=== PATIENT | male | born 1965 | race Caucasian/White ===

== ENCOUNTER 2016-10-13 10:40 | Day surgery (SDC) | payer BC ==
[~2016-10-13] VITALS: Ht 177.8 cm; Wt 155.5 kg
[2016-10-13 11:31] LABS: BASOPHILS 0.1 % (0.0-2.0); EOSINOPHILS 7.6 % (0-7); HEMATOCRIT 40.8 % (42.0-54.0); HEMOGLOBIN 13.7 g/dL (13.5-17.5); IMMATURE GRANULOCYTES 0.1 % (0-5); LYMPHOCYTES 25.8 % (15-50); MCH 31.2 pg (26.0-34.0); MCHC 33.6 g/dL (31.0-37.0); MCV 92.9 fL (80.0-100.0); MEAN PLATELET VOLUME 10.1 fL (7.4-10.4); MONOCYTES 10.2 % (2-11); NEUTROPHILS 56.2 % (40-80); PLATELET COUNT 212 10x3/uL (130-400); RBC 4.39 10x6/uL (4.20-6.10); RDW 13.4 % (11.5-14.5); WBC 6.7 10x3/uL (4.8-10.8)
[2016-10-13 11:39] LABS: ANION GAP 10.6 mmol/L (8-16); CALCIUM 8.5 mg/dL (8.5-10.1); CARBON DIOXIDE 28.5 mmol/L (21.0-32.0); CREATININE - SERUM 1.2 mg/dL (0.6-1.3); POTASSIUM - SERUM 4.1 mmol/L (3.5-5.1)
[2016-10-13] MEDS ORDERED: ZYLOPRIM300 MG PO (12:40)
[2016-10-13] MEDS ORDERED: KLONOPIN0.5 MG PO (12:41)
[2016-10-13] MEDS ORDERED: TOPROL XL50 MG PO (12:42)
[2016-10-13] MEDS ORDERED: GLUCOPHAGE500 MG PO (12:42)
[2016-10-13] MEDS ORDERED: ZANTAC150 MG PO (12:42)
[2016-10-13] MEDS ORDERED: PROZAC10 MG PO (12:43)
[2016-10-13 12:49] VITALS: BP 165/86; Ht 177.8 cm; Wt 155.5 kg
--- NOTE | 2016-10-13 13:57 | NUR ---
1357-INFLATE 60FR TIME ONE MINUTE.
[2016-10-13] MEDS ORDERED: DEXILANT60 MG PO (14:16)
--- NOTE | 2016-10-13 16:09 | NUR ---
1515 IV DC WITH CaTHER TIP INTACT
--- NOTE | 2016-10-19 13:54 | OP ---
PATIENT NAME: EDUARDO SCHWARTZ MEDICAL RECORD: [id number] :63 LOCATION:[facility] ADMISSION DATE: SURGEON: CAROLINE CORTES MD DATE OF OPERATION: 10/13/2016 REFERRING PHYSICIAN: Dr. Elise Perera. PROCEDURE: EGD with biopsy and esophageal balloon dilatation. INDICATIONS: Mr. Schwartz is a very pleasant 51-year-old gentleman with a history of dysphagia, with a history of esophageal stricture. He has been followed by Dr. Cleveland in [place] in the past and he typically has an esophageal dilatation every 2-5 years. He presents for outpatient EGD. PREMEDICATIONS: Total IV anesthesia (BMI is 49 and obstructive sleep apnea) propofol 400 mg. INSTRUMENT: Olympus video gastroscope and esophageal balloon dilator 60-Djiboutian. PROCEDURE AND FINDINGS: After receiving informed consent, Mr. Schwartz's posterior pharynx was anesthetized with Cetacaine spray, placed in left lateral decubitus position, sedated as per anesthesia. After achieving an adequate level of sedation, gastroscope was introduced per orally and advanced to the duodenum without difficulty. The proximal esophageal mucosa was notable for diffuse erythema and biopsies were obtained. In the distal esophagus at the GE junction was a short nonobstructive mild stricture and small sliding type hiatal hernia was noted. Gastric mucosa was notable for mild prepyloric and antral erythema and antral biopsies were obtained to rule out Helicobacter pylori. There were multiple polyps scattered throughout the body and fundus of the stomach and multiple polyps were biopsied for histopathology. Pylorus was patent and competent. Duodenal mucosa was without erythema or ulcers, appeared normal through the second portion. Gastroscope was then withdrawn to the stomach. Esophageal balloon dilator was passed through the gastroscope, the balloon was positioned midway across the distal esophagus insulated to a 60-Djiboutian size, held in place on the appropriate PSI for 60 seconds, then deflated with good results. Balloon was withdrawn and then biopsies were taken from the distal and proximal esophagus. Mr. Schwartz tolerated the procedure well and no immediate complications. ASSESSMENT: 1. Proximal esophagitis, likely secondary to gastroesophageal reflux disease, status post biopsy. 2. Short esophageal stricture, nonobstructive, status post esophageal balloon dilatation. 3. Small sliding type hiatal hernia. 4. Mild gastritis. 5. Gastric polyps. RECOMMENDATIONS: 1. Recommend proton pump inhibitor in addition to or in lieu of ranitidine at least to take daily. 2. Follow up histopathology. 3. Esophageal balloon dilatation as needed. TRANSINT:[id number] Voice Confirmation ID: [id number] DOCUMENT ID: [id number] OPERATIVE REPORT [id number] EDUARDO SCHWATRZ TERRI MD at 1354 CC: ELISE PERERA [id number] DICTATION DATE: 10/13/16 141 INTERACTIVE DEVELOPER: 10/13/161933 [facility] 10/13/16 [id number] [place] [address]
== END 2016-10-13 15:30 | disposition home or self-care (01) ==
LOC: D.OPS 10:40
PROVIDERS: Anesthesiology
DX: K20.9 Esophagitis, unspecified (principal); K21.9 Gastro-esophageal reflux disease without esophagitis; K22.2 Esophageal obstruction; K44.9 Diaphragmatic hernia without obstruction or gangrene; K29.70 Gastritis, unspecified, without bleeding; K31.7 Polyp of stomach and duodenum; G47.33 Obstructive sleep apnea (adult) (pediatric)

== ENCOUNTER 2017-03-23 11:11 | Day surgery (SDC) | payer BC ==
[~2017-03-23] VITALS: Ht 177.8 cm; Wt 143.2 kg
--- NOTE | ~2017-03-23 | OP ---
PATIENT NAME: EDUARDO SMITH MEDICAL RECORD: [id number] :61 [facility]ATION:[facility] ADMISSION DATE: SURGEON: ALBERT VALDIVIA DO DATE OF OPERATION: 03/23/2017 PROCEDURE: Colonoscopy with polypectomy. INDICATIONS FOR PROCEDURE: Screening for colorectal cancer. SCOPE: Olympus video pediatric colonoscope. MEDICATIONS: Propofol 780 mg IV per anesthesia. WITHDRAWAL TIME: 28 minutes. ESTIMATED BLOOD LOSS: Minimal. COMPLICATIONS: None. FINDINGS: Informed consent was given. The patient was made comfortable with the above medication. After reaching an adequate level of sedation by slow IV push, the patient was placed on his left side. A digital rectal examination was performed and it was normal. The endoscope was then advanced under direct visualization through the rectum to the cecum with visualization of the appendiceal orifice and ileocecal valve. The scope was slowly withdrawn and the mucosa was carefully examined. The prep was good. In the ascending colon, there were 2 polyps. They were both benign-appearing and sessile and measured approximately 6-8 mm in diameter. They were both removed using a hot snare in 1 piece and completely retrieved. In the descending colon, there was 1 polyp which was benign appearing and sessile, measuring approximately 7 mm in diameter. It was removed in 1 piece using hot snare and completely retrieved. In the sigmoid colon, there were 5 separate polyps which were benign-appearing and sessile and flat. They ranged in size from 2 mm-5 mm in size. They were all removed using hot forceps in 1 piece and completely retrieved. There was evidence of mild diverticulosis involving the sigmoid colon without evidence of diverticulitis. In the rectum, retroflexion was performed with visualization of small nonbleeding internal hemorrhoids. The scope was completely withdrawn from the patient. The patient tolerated the procedure well and there were no complications. IMPRESSION: 1. Multiple polyps as described above removed using hot snare and hot forceps. 2. Mild diverticulosis of the sigmoid colon. 3. Small nonbleeding internal hemorrhoids. PLAN AND RECOMMENDATIONS: 1. Discharge home when recovery parameters are met. 2. Follow up biopsy specimen results. 3. High fiber diet. 4. Continue current medications. 5. Recall colonoscopy in 3 years, pending results of pathology from polyps removed. TRANSINT:[id number] Voice Confirmation ID: [id number] DOCUMENT ID: [id number] OPERATIVE REPORT [id number] LUIS,ALBERT NEGRON DO CC: [id number] DICTATION DATE: 03/23/17 1619 BALLER TENDER: 03/23/17 2348 [facility] 03/23/17 [id number] [place] [address]
[~2017-03-23 11:11] MED LIST: DEXILANT60 MG PO; GLUCOPHAGE500 MG PO; KLONOPIN0.5 MG PO; PROZAC10 MG PO; TOPROL XL50 MG PO; ZANTAC150 MG PO; ZYLOPRIM300 MG PO
[2017-03-23 12:42] LABS: HEMATOCRIT 41.8 % (42.0-54.0); HEMOGLOBIN 13.9 g/dL (13.5-17.5); MCH 30.2 pg (26.0-34.0); MCHC 33.3 g/dL (31.0-37.0); MCV 90.7 fL (80.0-100.0); MEAN PLATELET VOLUME 10.5 fL (7.4-10.4); RBC 4.61 10x6/uL (4.20-6.10); RDW 13.9 % (11.5-14.5); WBC 7.4 10x3/uL (4.8-10.8)
[2017-03-23 12:47] LABS: ANION GAP 13.2 mmol/L (8-16); CALCIUM 8.6 mg/dL (8.5-10.1); CREATININE - SERUM 1.2 mg/dL (0.6-1.3); POTASSIUM - SERUM 4.2 mmol/L (3.5-5.1)
[2017-03-23] MEDS ORDERED: PRINIVIL20 MG PO (13:29)
[2017-03-23] MEDS ORDERED: FLOMAX0.4 MG PO (13:30)
[2017-03-23] MEDS ORDERED: PROTONIX40 MG PO (13:30)
[2017-03-23 13:34] VITALS: Ht 177.8 cm; Wt 143.2 kg
--- NOTE | 2017-03-23 16:51 | NUR ---
1630 ABDOMEN DISTENDED AND IS PASSING SOME FLATUS PAIN LEVEL IS A 3. RESP EVEN AND NONLABORED. POST COLONOSCOPY. DR. VALDIVIA IS AWARE OF HIS ABDOMEN ROUND AND DISTENDED. ENCOURAGED TO STAY ON HIS SIDE LEFT AND PASS AIR.
--- NOTE | 2017-03-23 17:06 | NUR ---
1700 PASSED A LOT OF FLATULENCE BELLY MUCH SOFTER AND NO PAIN.
--- NOTE | 2017-03-23 17:53 | NUR ---
1715 DR. VALDIVIA CHECKED ON PATIENT STATED TO JUST MONITOR PATIENT. BELLY MUCH SOFTER AND PASSING FLATUS BOWEL SOUNDS PRESENT ABDOMEN DISTENDED BUT MUCH SOFTER WILL MONITOR.
--- NOTE | 2017-03-23 17:56 | NUR ---
1745 UP AND VOIDED WITH ASSISTANCE.
--- NOTE | 2017-03-23 17:57 | NUR ---
Madonna REPORTED TO DR. VALDIVIA ABDOMEN SOFTER PASSED AIR AND TOLERATED LIQUIDS OKAY FOR DISCHARGE.
--- NOTE | 2017-03-23 17:58 | NUR ---
1758 IV DCD CATHETER INTACT. DISCHARGE INSTRUCTIONS GIVEN AND VERBALLY UNDERSTANDS.
--- NOTE | 2017-03-23 18:12 | NUR ---
1810 NO ABDOMEN PAIN TOLERATED FULL LIQUIDS UP AND VOIDED CRITERIA MET AND HOME VIA W/C.
== END 2017-03-23 18:11 | disposition home or self-care (01) ==
LOC: D.OPS 11:11
PROVIDERS: Anesthesiology
DX: Z12.11 Encounter for screening for malignant neoplasm of colon (principal); D12.2 Benign neoplasm of ascending colon; K63.5 Polyp of colon; D12.4 Benign neoplasm of descending colon; K57.30 Diverticulosis of large intestine without perforation or abscess without bleeding; K64.8 Other hemorrhoids; Z01.812 Encounter for preprocedural laboratory examination

== ENCOUNTER 2018-05-24 12:35 | Day surgery (SDC) | payer BC ==
[~2018-05-24] VITALS: Ht 177.8 cm; Wt 150.0 kg
--- NOTE | ~2018-05-24 | OP ---
PATIENT NAME: EDUARDO SCHWARTZ MEDICAL RECORD: [id number] :61 LOCATION:[facility] ADMISSION DATE: SURGEON: CAROLINE CORTES MD DATE OF OPERATION: 05/24/2018 PROCEDURE: Colonoscopy with polypectomy. REFERRING PHYSICIAN: Dr. Elise Perera. INDICATIONS: Mr. Schwartz is a very pleasant 53-year-old gentleman with a history of colon polyps. His last colonoscopy (with Dr. Jung) on 03/23/2017 showed 9 polyps and mild sigmoid diverticulosis coli. 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 He presents for outpatient surveillance colonoscopy. PREMEDICATIONS: Total IV anesthesia (BMI approximately 47) propofol 480 mg. INSTRUMENT: [employer] video colonoscope pediatric. PROCEDURE AND FINDINGS: After receiving informed consent, Mr. Schwartz was placed in left lateral decubitus position, sedated as per anesthesia. After achieving adequate level of sedation, digital rectal exam was performed that showed no external hemorrhoidal tags, fissures or fistulas, normal sphincter tone, no palpable rectal masses. Colonoscope was introduced per rectally and advanced to the cecum with some difficulty. He had a long and redundant colon. The cecum, IC valve, and appendiceal orifice were identified and appeared normal. As the colonoscope was withdrawn, careful inspection was made of the guzman of the colon. Overall mucosa had normal vascular and fold pattern. In the transverse colon was a 0.5 cm sessile polyp removed with hot biopsy forcep technique. In the descending colon was a 0.5 cm sessile polyp removed with hot biopsy forcep technique and in the sigmoid colon was a 0.5 cm sessile polyp removed with biopsy forcep technique. Within the rectum were 2 polyps measuring 0.3 to 0.5 cm in size, sessile, removed with biopsy forceps technique. A mild number of diverticula were seen scattered in the sigmoid colon. Retroflexion in the rectum showed trace internal hemorrhoids. A fair to good prep was present. Withdrawal time was 6 minutes. Mr. Schwartz tolerated the procedure well, no immediate complications. ASSESSMENT: 1. Sigmoid polyp status post polypectomy. 2. Descending polyp status post polypectomy. 3. Transverse polyp status post polypectomy. 4. Two rectal polyps status post polypectomy. 5. Mild sigmoid diverticulosis coli. 6. Trace internal hemorrhoids. RECOMMENDATIONS: 1. Follow up histopathology. 2. Avoid aspirin, nonsteroidal anti-inflammatory drugs and NOEL-2 inhibitors for 14 days post polypectomy. 3. High fiber diet. 4. Surveillance colonoscopy in 2-3 years pending nature of polyp histopathology. OPERATIVE REPORT [id number] LUISEDUARDO TRANSINT:[id number] Voice Confirmation ID: [id number] DOCUMENT ID: [id number] CAROLINE CORTES MD CC: [id number] DICTATION DATE: 05/24/18 1619 MECHANIC ASSISTANT: 05/24/18 1641 [facility] 05/24/18 [id number] [place] [address]
[~2018-05-24 12:35] MED LIST changes: +FLOMAX0.4 MG PO; +PRINIVIL20 MG PO; +PROTONIX40 MG PO
[2018-05-24 13:19] LABS: BASOPHILS 0.1 % (0-2); EOSINOPHILS 3.9 % (0-7); HEMATOCRIT 39.7 % (42.0-54.0); HEMOGLOBIN 13.6 g/dL (13.5-17.5); IMMATURE GRANULOCYTES 0.1 % (0-5); LYMPHOCYTES 18.6 % (15-50); MCH 30.8 pg (26.0-34.0); MCHC 34.3 g/dL (31.0-37.0); MCV 89.8 fL (80.0-100.0); MEAN PLATELET VOLUME 10.3 fL (7.4-10.4); MONOCYTES 12.1 % (2-11); NEUTROPHILS 65.2 % (40-80); PLATELET COUNT 228 10x3/uL (130-400); RBC 4.42 10x6/uL (4.20-6.10); RDW 13.4 % (11.5-14.5)
[2018-05-24 13:31] LABS: ANION GAP 10.9 mmol/L (8-16); CALCIUM 8.7 mg/dL (8.5-10.1); CARBON DIOXIDE 27.2 mmol/L (21.0-32.0); CREATININE - SERUM 1.3 mg/dL (0.6-1.3); POTASSIUM - SERUM 4.1 mmol/L (3.5-5.1)
[2018-05-24 14:58] VITALS: BP 141/75; Ht 177.8 cm; Wt 150.0 kg
== END 2018-05-24 17:30 | disposition home or self-care (01) ==
LOC: D.OPS 12:35
PROVIDERS: Anesthesiology
DX: K63.5 Polyp of colon (principal); Z86.010 Personal history of colon polyps; K57.90 Diverticulosis of intestine, part unspecified, without perforation or abscess without bleeding

== ENCOUNTER 2019-01-03 12:41 | Day surgery (SDC) | payer BC ==
[~2019-01-03] VITALS: Ht 177.8 cm; Wt 145.5 kg
[2019-01-03 13:48] LABS: HEMATOCRIT 39.8 % (42.0-54.0); HEMOGLOBIN 13.4 g/dL (13.5-17.5); MCH 30.1 pg (26.0-34.0); MCHC 33.7 g/dL (31.0-37.0); MCV 89.4 fL (80.0-100.0); MEAN PLATELET VOLUME 9.9 fL (7.4-10.4); RBC 4.45 10x6/uL (4.20-6.10); RDW 13.5 % (11.5-14.5); WBC 8.1 10x3/uL (4.8-10.8)
[2019-01-03 13:56] LABS: ANION GAP 15.2 mmol/L (8-16); CALCIUM 8.9 mg/dL (8.5-10.1); CARBON DIOXIDE 26.7 mmol/L (21.0-32.0); CREATININE - SERUM 1.2 mg/dL (0.6-1.3); POTASSIUM - SERUM 3.9 mmol/L (3.5-5.1)
[2019-01-03] MEDS ORDERED: BENICAR20 MG (15:12)
[2019-01-03] MEDS ORDERED: NORVASC5 MG (15:12)
[2019-01-03] MEDS ORDERED: HYDROCHLOROTH12.5 M1 PO (15:12)
[2019-01-03] MEDS ORDERED: FLOMAX0.4 MG PO (15:16)
[2019-01-03] MEDS ORDERED: LIPITOR20 MG (15:16)
[2019-01-03 15:41] VITALS: BP 139/83; Ht 177.8 cm; Wt 145.5 kg
--- NOTE | 2019-01-03 18:10 | NUR ---
RIGHT HAND PIV DC'D WITH TIP INTACT, PATIENT DRESSING IN PERSONAL CLOTHING. DISCHARGE INSTRUCTIONS REVIEWED WITH PATIENT AND SPOUSE. 1814 DISCHARGED HOME VIA WHEELCHAIR TO PRIVATE VEHICLE WITH SPOUSE
--- NOTE | 2019-01-04 16:54 | OP ---
PATIENT NAME: EDUARDO SCHWARTZ MEDICAL RECORD: [id number] :61 LOCATION:[facility] ADMISSION DATE: SURGEON: CAROLINE CORTES MD DATE OF OPERATION: 01/03/2019 PROCEDURE: Colonoscopy. REFERRING PHYSICIAN: Elise Peerra in [place], [place]. INDICATIONS: Mr. Schwartz is a very pleasant 53-year-old gentleman with a history of colon polyps. He had a colonoscopy in April 2018 with removal of polyps; one of the rectal polyps was a tubulovillous adenoma. He presents for followup colonoscopy to document no recurrence or remnants of polyps. PREMEDICATIONS: Total IV anesthesia (BMI is about 47) propofol 800 mg. INSTRUMENT: Olympus video colonoscope, pediatric. PROCEDURE AND FINDINGS: After receiving informed consent, Mr. Schwartz was placed in left lateral decubitus position, sedated as per anesthesia. After achieving adequate level of sedation, digital rectal exam was performed that showed no external hemorrhoid tags, fissures or fistulas, normal sphincter tone, no palpable rectal masses. Colonoscope was introduced per rectally and advanced to the cecum with mild difficulty. I had a long and redundant sigmoid colon. The cecum, IC valve, and appendiceal orifice were identified and appeared normal. As the colonoscope was withdrawn, careful inspection was made of the guzman of the colon. Overall mucosa had normal vascular and fold pattern. There were stool balls scattered throughout the left side of the colon and thick liquid stool throughout the colon. Multiple lavages were performed. There were diverticula scattered in the descending and more numerous in the sigmoid colon. Retroflexion in the rectum showed minimal internal hemorrhoids. There was no evidence of polyp remnant or regrowth. Mr. Schwartz tolerated the procedure well, no immediate complications. Withdrawal time was 7 minutes. ASSESSMENT: 1. Mxvh-ey-razhexaz left colon diverticulosis. 2. Mild internal hemorrhoids. 3. History of colon polyps. RECOMMENDATIONS: 1. High fiber diet. 2. Daily Metamucil. 3. Surveillance colonoscopy in 3 years. TRANSINT:[id number] Voice Confirmation ID: [id number] DOCUMENT ID: [id number] CAROLINE CORTES MD at 165 CC: ELISE PERERA [id number] DICTATION DATE: 01/03/19 1714 GUN NUMBER: 01/03/19 [id number] [facility] 01/03/[address] [facility] [id number]
== END 2019-01-03 18:15 | disposition home or self-care (01) ==
LOC: D.OPS 12:41
PROVIDERS: Anesthesiology; ATTEND Internal Medicine Gastroenterology
DX: K57.30 Diverticulosis of large intestine without perforation or abscess without bleeding (principal); K64.8 Other hemorrhoids; Z86.010 Personal history of colon polyps; Z01.812 Encounter for preprocedural laboratory examination